=== PATIENT | female | born 1940 | race Caucasian/White ===

== ENCOUNTER → 2017-11-10 | Day surgery (SDC) | payer MEDICARE, OTHER ==
[2017-11-08 11:37] LABS: BASOPHILS # (AUTO) 0.1 (0.0-0.1); BASOPHILS % 0.5 % (0.0-1.0); EOSINOPHILS # (AUTO) 0.1 (0.0-0.4); EOSINOPHILS % 1.2 % (0.0-6.0); HEMATOCRIT 41.5 % (34.2-44.1); HEMOGLOBIN 14.4 g/dL (12.0-16.0); LYMPHOCYTES # (AUTO) 1.8 (1.0-3.2); LYMPHOCYTES % 16.8 % (18.0-39.1); MEAN CORPUSCULAR HEMOGLOBIN 31.4 pg (28-32); MEAN CORPUSCULAR HGB CONC 34.7 g/dL (31-35); MEAN CORPUSCULAR VOLUME 90.6 fL (81-99); MONOCYTES # (AUTO) 0.7 (0.2-0.8); MONOCYTES % 6.3 % (4.4-11.3); NEUTROPHILS # (AUTO) 8.1 (2.1-6.9); NEUTROPHILS % 74.8 % (38.7-80.0); PLATELET COUNT 245 x10e3/uL (140-360); RED BLOOD COUNT 4.58 x10e6/uL (3.6-5.1); RED CELL DISTRIBUTION WIDTH 12.3 % (11.7-14.4)
[~2017-11-10] MED LIST: ANASTROZOLE1 MG PO; ASPIR 8181 MG PO; CARVEDILOL3.125 MG PO; EYE PO; FENTANYL CITRATE/PF 100MCG/2 ML INJ ONE; HYDROCHLOROTHIA25 MG PO; IOPAMIDOL 200 MG/ML 20 ML VIAL IT ONE; LIDOCAINE HCL 1% 30ML-PF VIAL ONE; LIDOCAINE HCL 2% LOCAL INJ 5 ML SDV VIAL INJ ONE; MIDAZOLAM HCL 2 MG/2 ML VIAL ONE; PROPOFOL IV EMULSION 10 MG/ML 20 ML VIAL ONE; RANITIDINE HCL300 MG PO; SENNA LAX8.6 MG PO; TOLTERODINE TART2 MG PO; TRIAMCINOLONE ACET 40 MG/ML VIAL ONE; TURMERIC1 GM PO; TYLENOL EXTRA500 MG PO; VIT D3 PO; ZYRTEC-D TABLE1 EACH PO; [UNRECOGNIZED DRUG - OTHER] PO
--- OUTSIDE RECORDS SUMMARY | 2017-11-10 07:04 | XMS REPORT | Clinical Summary ---
Author Author [facility] Address Unknown Phone Unavailable Care Team Providers Care Quality Eng Name Role Phone Chuyita Blackmon MD PCP Allergies Active Allergy Reactions Severity Noted Date Comments Codeine Anxiety Low 07/13/2017 Prochlorperazine Other (See Comments) 07/13/2017 MUSCLE SPASMS Sulfa (Sulfonamide Other (See Comments) 07/13/2017 HEADAHCE/FEVER Antibiotics) Current Medications Not on file Active Problems Not on file Encounters Date Type Specialty Care Team Description 10/14/2017 Orders Only Access Provider, Unknown 07/13/2017 Hospital Radiology Sophie Feldman MD Malignant neoplasm of Encounter upper-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, unspecified estrogen receptor status; Abdominal pain, left lower quadrant 07/05/2017 Transcribe Access Sophie Feldman MD Malignant neoplasm of Orders upper-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, unspecified estrogen receptor status (Primary Dx); Abdominal pain, left lower quadrant 01/05/2017 Hospital Radiology Sophie Feldman MD Postmenopausal status Encounter (age-related) (natural); Malignant neoplasm of upper-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 after 11/09/2016 Social History Tobacco Use Types Packs/Day Years Used Date Never Assessed Sex Assigned at Date Recorded Not on file Last Filed Vital Signs Not on file Plan of Treatment Health Maintenance Due Date Last Done Comments COLONOSCOPY 1992 MAMMOGRAM 1992 ZOSTER VACCINE 2002 PNEUMOCOCCAL 12/07/2007 POLYSACCHARIDE VACCINE AGE 65 AND OVER PNEUMOCOCCAL-13 12/07/2007 INFLUENZA VACCINE 02/22/2018 Results * Miscellaneous Imaging Result (10/14/2017) Specimen Performing Laboratory Blood * CT Chest W Contrast Abdomen W Contrast Pelvis W Contrast (07/13/2017 10:33 AM) Specimen Performing Laboratory [facility] [address] [place] [address] Narrative EXAMINATION:CT CHEST W CONTRAST ABDOMEN W CONTRAST PELVIS W CONTRAST CLINICAL HISTORY: 76 years [id number] Malignant neoplasm of upper-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, R10.32 Left lower quadrant pain, C50.211 R10.32 TECHNIQUE:Multiple axial images of the chest, abdomen, and pelvis were obtained following intravenous administration of iodinated contrast. Sagittal and coronal computerized reformatted images were obtained. CT imaging was performed with iterative reconstruction techniques and/or automated exposure control to reduce radiation dose. COMPARISON:None. Findings: There is a small cystic collection in the medial right breast with associated surgical clip measuring approximately 1.9 x 2.3x 3.7cm with multiple adjacent clips and apparent subareolar calcifications as well. This is likely related to a small seroma in the operative site. There are also surgical clips in the right axilla. No abnormal lymph nodes are identified in the axillary regions on either side based on size criteria. The mediastinal structures demonstrate no abnormal mediastinal or hilar lymph nodes. There is no pleural or pericardial fluid. Within the left lung apex there is an area of focal pleural and parenchymal opacity measuring 13 mm which is probably related to chronic scar. There are milder changes on the right. A tiny peripheral micronodule in the periphery of the left apex measures 2.5 mm image 25 series 3. There are linear opacities and subpleural position in the right upper lobe and middle lobe with areas of atelectasis most consistent with post radiation change. Mild bronchiectasis in this area on the right is also noted. On the left there is focal opacity in the area of the lingula with a tree-in- bud type appearance as well as some volume loss may be the result of old inflammatory disease. Correlation with clinical findings is needed. This is not the typical appearance of metastatic disease. Elsewhere no focal findings are identified. IMPRESSION: 1. Postop changes in the medial right breast with a small probable seroma in the operative site from previous presumed lumpectomy measuring 1.9 x 2.3 x 3.7 cm with linear areas of subpleural scarring and volume loss in the right upper lobe and middle lobe suggesting radiation therapy in this area. 2. Tree-in-bud type appearance with moderate nodularity and some volume loss with apparent atelectasis in the lingula and anterior segment of the left upper lobe probably result of old inflammation although follow-up is suggested. 3. Nodular apical pleural thickening bilaterally greater on the left probably chronic. CT abdomen and pelvis: Done with intravenous and gastrointestinal contrast: The liver and spleen appear normal in size and homogeneous in texture. The adrenal glands demonstrate a normal right adrenal. The left adrenal is slightly lobular no nodule or mass is visualized. The pancreas appears mildly atrophic but otherwise unremarkable. The gallbladder appears unremarkable. The kidneys are not obstructed no calculi are identified. There are no abnormal lymph nodes identified in the abdomen or pelvis. There is a large finding of stool throughout the colon however. There is no free fluid. The uterus and ovaries are not visualized. IMPRESSION: 1. No metastatic disease in the abdomen or pelvis is identified. 2. Large volume of stool present throughout the colon. 3. Slight thickening of the left adrenal with no nodule or mass is visualized CT bone Windows: There are arthritic changes involving the hips, sacroiliac joints and spine diffusely. There is a scoliosis of the lumbar spine convex to the left. There are no lytic or blastic lesions identified to suggest metastatic disease. IMPRESSION: Arthritic changes involving the spine and hips and sacroiliac joints no metastatic lesions are identified. 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 Sagittal and coronal computerized reformatted images were obtained. CT imaging was performed with iterative reconstruction techniques and/or automated exposure control to reduce radiation dose. COMPARISON: None. Findings: There is a small cystic collection in the medial right breast with associated surgical clip measuring approximately 1.9 x 2.3x 3.7 cm with multiple adjacent clips and apparent subareolar calcifications as well. This is likely related to a small seroma in the operative site. There are also surgical clips in the right axilla. No abnormal lymph nodes are identified in the axillary regions on either side based on size criteria. The mediastinal structures demonstrate no abnormal mediastinal or hilar lymph nodes. There is no pleural or pericardial fluid. Within the left lung apex there is an area of focal pleural and parenchymal opacity measuring 13 mm which is probably related to chronic scar. There are milder changes on the right. A tiny peripheral micronodule in the periphery of the left apex measures 2.5 mm image 25 series 3. There are linear opacities and subpleural position in the right upper lobe and middle lobe with areas of atelectasis most consistent with post radiation change. Mild bronchiectasis in this area on the right is also noted. On the left there is focal opacity in the area of the lingula with a tree-in- bud type appearance as well as some volume loss may be the result of old inflammatory disease. Correlation with clinical findings is needed. This is not the typical appearance of metastatic disease. Elsewhere no focal findings are identified. IMPRESSION: 1. Postop changes in the medial right breast with a small probable seroma in the operative site from previous presumed lumpectomy measuring 1.9 x 2.3 x 3.7 cm with linear areas of subpleural scarring and volume loss in the right upper lobe and middle lobe suggesting radiation therapy in this area. 2. Tree-in-bud type appearance with moderate nodularity and some volume loss with apparent atelectasis in the lingula and anterior segment of the left upper lobe probably result of old inflammation although follow-up is suggested. 3. Nodular apical pleural thickening bilaterally greater on the left probably chronic. CT abdomen and pelvis: Done with intravenous and gastrointestinal contrast: The liver and spleen appear normal in size and homogeneous in texture. The adrenal glands demonstrate a normal right adrenal. The left adrenal is slightly lobular no nodule or mass is visualized. The pancreas appears mildly atrophic but otherwise unremarkable. The gallbladder appears unremarkable. The kidneys are not obstructed no calculi are identified. There are no abnormal lymph nodes identified in the abdomen or pelvis. There is a large finding of stool throughout the colon however. There is no free fluid. The uterus and ovaries are not visualized. IMPRESSION: 1. No metastatic disease in the abdomen or pelvis is identified. 2. Large volume of stool present throughout the colon. 3. Slight thickening of the left adrenal with no nodule or mass is visualized CT bone Windows: There are arthritic changes involving the hips, sacroiliac joints and spine diffusely. There is a scoliosis of the lumbar spine convex to the left. There are no lytic or blastic lesions identified to suggest metastatic disease. IMPRESSION: Arthritic changes involving the spine and hips and sacroiliac joints no metastatic lesions are identified. [id number] * POC creatinine (07/13/2017 10:29 AM) Component Value Ref Range POC creatinine 1.1 (H) 0.5 - 0.9 mg/dl Specimen Performing Laboratory Blood [facility] DEPARTMENT OF PATHOLOGY AND GENOMIC MEDICINE [address] [place] [address] * Bone Density (01/05/2017 10:37 AM) Specimen Performing Laboratory [facility] [address] [place] [address] Narrative DEXA SCAN DATE: 01/05/2017 10:00 AM INDICATION: Postmenopausal screening for osteoporosis/follow-up, breast cancer COMMENT: DEXA bone densitometry was performed on the [employer] unit utilizing the lumbar spine and left hip. Left hip evaluation: Total BMD: 0.97 g/cm2. Mean T score: 0.2 SD. Z score 1.9. This represents a 6% decline from 01/10/2015 Left femoral neck BMD: 0.83 g/cm2. Mean T score: -0.2 SD. Z score 1.8 AP spine (L1-L4) evaluation: Total BMD: 1.3 g/cm2. Mean T score: 2.6 SD. Z score 4.9. This represents a 5% decline from 01/10/2015 IMPRESSION: The patient is consideredNormal. according to the world health organization (WHO ) guidelines. Fracture risk is Not increased. A more detailed report has been mailed to your office. If additional copies of that detailed report are necessary, they may be obtained from the [facility] radiology Department. World Health Organization definitions: NORMAL: T score at or above -1 SD OSTEOPENIA: T score between -1 and -2.5 SD OSTEOPOROSIS: T score at or the low -2.5 SD ESTABLISHED OSTEOPOROSIS: T score at or below -2.5 plus fragility fracture [id number] Procedure Note Interface, Radiology Results Incoming - 01/05/2017 11:20 AM CDT DEXA SCAN DATE: 01/05/2017 10:00 AM INDICATION: Postmenopausal screening for osteoporosis/follow-up, breast cancer COMMENT: DEXA bone densitometry was performed on the [employer] unit utilizing the lumbar spine and left hip. Left hip evaluation: Total BMD: 0.97 g/cm2. Mean T score: 0.2 SD. Z score 1.9. This represents a 6% decline from 01/10/2015 Left femoral neck BMD: 0.83 g/cm2. Mean T score: -0.2 SD. Z score 1.8 AP spine (L1-L4) evaluation: Total BMD: 1.3 g/cm2. Mean T score: 2.6 SD. Z score 4.9. This represents a 5% decline from 01/10/2015 IMPRESSION: The patient is consideredNormal. according to the world health organization (WHO ) guidelines. Fracture risk is Not increased. A more detailed report has been mailed to your office. If additional copies of that detailed report are necessary, they may be obtained from the [facility] radiology Department. World Health Organization definitions: NORMAL: T score at or above -1 SD OSTEOPENIA: T score between -1 and -2.5 SD OSTEOPOROSIS: T score at or the low -2.5 SD ESTABLISHED OSTEOPOROSIS: T score at or below -2.5 plus fragility fracture [id number] after 11/09/2016 Insurance Payer Benefit Subscriber ID Type Phone Address Plan / Group MEDICARE MEDICARE xxxxxxxxxx Medicare [place], [place] PART A AND B CIGNA CIGNA xxxxxxxxxxx Indemnity INDEMNITY
== END | disposition home or self-care (01) ==
LOC: OR 07:02
PROVIDERS: ATTEND Physical Medicine & Rehabilitation Pain Medicine
DX: M46.1 Sacroiliitis, not elsewhere classified (principal); R93.7 Abnormal findings on diagnostic imaging of other parts of musculoskeletal system; M19.90 Unspecified osteoarthritis, unspecified site; E66.3 Overweight; I10 Essential (primary) hypertension; R00.1 Bradycardia, unspecified; N39.0 Urinary tract infection, site not specified; K58.9 Irritable bowel syndrome, unspecified; Z88.5 Allergy status to narcotic agent; Z88.2 Allergy status to sulfonamides; Z88.8 Allergy status to other drugs, medicaments and biological substances; Z01.810 Encounter for preprocedural cardiovascular examination; Z01.812 Encounter for preprocedural laboratory examination; Z79.82 Long term (current) use of aspirin; Z68.26 Body mass index [BMI] 26.0-26.9, adult; Z96.652 Presence of left artificial knee joint; Z87.891 Personal history of nicotine dependence
CPT/HCPCS: 36415; 85025; 93005; G0259; J2001 ×2; J2250; J3301; Q9966; 76000

== ENCOUNTER → 2017-12-08 | Day surgery (SDC) | payer MEDICARE, OTHER ==
--- OUTSIDE RECORDS SUMMARY | 2017-12-08 05:15 | XMS REPORT | Clinical Summary ---
Author Author [facility] Address Unknown Phone Unavailable Care Team Providers Care Turntable Engineer Name Role Phone Chuyita Blackmon MD PCP [...] upper-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 after 12/07/2016 Social History Tobacco Use Types Packs/Day Years Used Date Never Assessed Sex Assigned at Date Recorded Not on file Last Filed Vital Signs Not on file Plan of Treatment Health Maintenance Due Date Last Done Comments BREAST CANCER SCREENING 1992 COLON CANCER SCREENING 1992 SHINGRIX VACCINE (#1) 1992 ZOSTER VACCINE 2002 PNEUMOCOCCAL 12/07/2007 POLYSACCHARIDE VACCINE AGE 65 AND OVER PNEUMOCOCCAL-13 12/07/2007 INFLUENZA VACCINE 02/22/2018 Results * Miscellaneous Imaging Result (10/14/2017) Specimen Performing Laboratory Blood * CT Chest W Contrast Abdomen W Contrast Pelvis W Contrast (07/13/2017 10:33 AM) Specimen Performing Laboratory [facility] [address] [place] [address] Narrative EXAMINATION:CT CHEST W CONTRAST ABDOMEN W CONTRAST PELVIS W CONTRAST CLINICAL HISTORY: 76 years [id number] Malignant neoplasm of upper-inner quadrant of right [...] sacroiliac joints no metastatic lesions are identified. 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 [id number] * POC creatinine (07/13/2017 10:29 AM) Component Value Ref Range POC creatinine 1.1 (H) 0.5 - 0.9 mg/dl Specimen Performing Laboratory Blood [facility] DEPARTMENT OF PATHOLOGY AND GENOMIC MEDICINE [address] [place] [address] * Bone Density (01/05/2017 10:37 AM) Specimen Performing Laboratory [facility] [address] [place] [address] Narrative DEXA SCAN DATE: 01/05/2017 10:00 AM [...] necessary, they may be obtained from the [facility] radiology Department. World Health Organization definitions: NORMAL: T score at or above -1 SD OSTEOPENIA: T score between -1 and -2.5 SD OSTEOPOROSIS: T score at or the low -2.5 SD ESTABLISHED OSTEOPOROSIS: T score at or below -2.5 plus fragility fracture [id number] Procedure Note Interface, Radiology Results Incoming - [...] necessary, they may be obtained from the [facility] radiology Department. World Health Organization definitions: NORMAL: T score at or above -1 SD OSTEOPENIA: T score between -1 and -2.5 SD OSTEOPOROSIS: T score at or the low -2.5 SD ESTABLISHED OSTEOPOROSIS: T score at or below -2.5 plus fragility fracture [id number] after 12/07/2016 Insurance Payer Benefit Subscriber ID Type Phone Address Plan / Group MEDICARE MEDICARE xxxxxxxxxx Medicare [place], [place] PART A AND B CIGNA CIGNA xxxxxxxxxxx Indemnity INDEMNITY
== END | disposition home or self-care (01) ==
LOC: OR 05:12
PROVIDERS: ATTEND Physical Medicine & Rehabilitation Pain Medicine
DX: M46.1 Sacroiliitis, not elsewhere classified (principal); R93.7 Abnormal findings on diagnostic imaging of other parts of musculoskeletal system; I10 Essential (primary) hypertension; G89.29 Other chronic pain; R05 Cough; N39.0 Urinary tract infection, site not specified; Z88.5 Allergy status to narcotic agent; Z88.2 Allergy status to sulfonamides; Z88.8 Allergy status to other drugs, medicaments and biological substances; Z79.82 Long term (current) use of aspirin
CPT/HCPCS: G0260; J2001 ×2; J2250; J3301; Q9966; 77002